=== PATIENT | male | born 1995 | race Caucasian/White ===

== ENCOUNTER 2020-03-23 17:49 | Emergency (ER) | payer OTHER ==
[~2020-03-23] VITALS: Ht 170.2 cm; Wt 59.0 kg
[2020-03-23 17:55] VITALS: BP 115/65
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
--- NOTE | 2020-03-23 18:10 | NUR ---
DR WAGONER EVALUATING PT AT BEDSIDE
--- NOTE | 2020-03-23 18:32 | NUR ---
PT LEAVING TO CT VIA WHEELCHAIR
--- NOTE | 2020-03-23 19:00 | NUR ---
PT RETURNED TO BED 11 VIA WHEELCHAIR
--- NOTE | 2020-03-23 19:13 | NUR ---
RECEIVED REPORT FROM JEREMY RUIZ. WILL CONT CARE AT THIS TIME.
[2020-03-23 19:40] VITALS: BP 115/65
== END 2020-03-23 19:40 | disposition home or self-care (01) ==
LOC: MED 17:49
DX: S06.9X1A Unspecified intracranial injury with loss of consciousness of 30 minutes or less, initial encounter (principal); F20.9 Schizophrenia, unspecified; Y04.2XXA Assault by strike against or bumped into by another person, initial encounter; Y93.89 Activity, other specified; Y92.89 Other specified places as the place of occurrence of the external cause; Y99.8 Other external cause status
CPT/HCPCS: 70450; 70486; 99285